=== PATIENT | female | born 1990 | race Two or more races ===

== ENCOUNTER 2024-12-04 18:16 | Emergency (ER) | payer MEDICAID, OTHER ==
[~2024-12-04] VITALS: Ht 167.6 cm; Wt 66.4 kg
--- NOTE | 2024-12-04 18:37 | ECG ---
[facility] Test Date: 2024-12-04 Test Time: 18:24:57 Pat Name: MULUGETA LEVY Department: ED Room: Gender: F Therapist'S Assistant: NELY : 1990 Requested By: JAQUELIN CONNOR Order Number: [id number] Reading MD: Robinson Vines Measurements Intervals [place] Rate: 79 P: 63 IN: 108 QRS: 86 QRSD: 120 T: 54 QT: 412 QTc: 473 Interpretive Statements Sinus rhythm Short IN interval IVCD, consider atypical RBBB Electronically Signed On 12-06-2024 17:08:52 PDT by Robinson Vines Please click the below link to view image of tracing.
--- NOTE | 2024-12-04 19:39 | ED.PDOC ---
MANAGER UNION HPI Comments 34 y.o female presents to the ED via EMS for a chief complaint of vaginal b leeding associated with abdominal pain that started 2 days ago. Patient reports being seen at [place] when symptoms presented, had an ultrasound done indicating possible miscarriage. Patient's last menstrual cycle was in August of 2024. Patient reports bleeding has worsened today and is now having constant sharp diffused abdominal pain. Patient has not seen an MANAGER UNION yet. 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 Chief Complaint: Vaginal Bleed Time Seen by MD: 19:00 Reviewed Notes: Nurses Notes, Medications, Allergies Allergies: Coded Allergies: NO KNOWN ALLERGIES (Unverified , 12/04/24) Information Source: Patient Mode of Arrival: EMS Timing: Days (2) Vaginal Discharge: None Vaginal Lesions: None Bleeding Quality: Dark Vaginal Mass: None Onset Of Mass/Bleeding: Spontaneous Sexual Activity: Last Consensual [place]: Unknown Control: None History of: Current Blood Type: Unknown Associated Signs and Symptoms: Vaginal Bleeding, Abdominal Pain Past Medical History PAST MEDICAL HISTORY: Denies Past Medical History (Other): SVT Surgical History: Denies all surgeries 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: 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 4 Para 3 AB 0 LMP August 2024 Family History Family History: Reviewed,noncontributory to illness Social History Smoker: Non-Smoker Alcohol: Denies ETOH Use Drugs: Denies Drug Use Lives In: Home Constitutional: denies: chills, diaphoresis, fatigue, fever, malaise, sweats, weakness, others Respiratory: denies: cough, hemoptysis, orthopnea, SOB at rest, shortness of breath, SOB with excertion, stridor, wheezing, others Cardiovascular: denies: chest pain, dizzy spells, diaphoresis, Dyspnea on exertion, edema, irregular heart beat, left arm pain, lightheadedness, palpitations, PND, syncope, others Gastrointestinal: reports: abdominal pain; denies: abdomen distended, blood streaked bowels, constipated, diarrhea, dysphagia, difficulty swallowing, hematemesis, melena, nausea, poor appetite, poor fluid intake, rectal bleeding, rectal pain, vomiting, others Genitourinary: reports: abnormal vagina bleeding, pain, ; denies: burning, dyspareunia, dysuria, flank pain, frequency, hematuria, incontinence, vagina discharge, urgency, others Neurological: denies: dizziness, fainting, headache, left sided numbness, left sided weakness, numbness, paresthesia, pre-existing deficit, right sided numbness, right sided weakness, seizure, speech problems, tingling, tremors, weakness, others Musculoskeletal: denies: back pain, gout, joint pain, joint swelling, muscle pain, muscle stiffness, neck pain, others Integumetry: denies: bruises, change in color, change in hair/nails, dryness, laceration, lesions, lumps, rash, wounds, others Allergic/Immunocompromised: denies: Difficulty Healing, Frequent Infections, Hives, Itching, others Hematologic/Lymphatic: denies: anemia, blood clots, easy bleeding, easy bruising, swollen glands, others Endocrine: denies: excessive hunger, excessive sweating, excessive thirst, excessive urination, flushing, intolerance to cold, intolerance to heat, unexplained weight gain, unexplained weight loss, others Psychiatric: denies: anxiety, bipolar disorder, depression, hopeless, panic disorder, schizophrenia, sleepless, suicidal, others All Other Systems: Reviewed and Negative Physical Exam General Appearance: Moderate Distress HEENT: Normal ENT Inspection, Pharynx Normal, TMs Normal Neck: Full Range of Motion, Non-Tender, Normal, Normal Inspection Respiratory: Chest Non-Tender, Lungs Clear, No Accessory Muscle Use, No Respiratory Distress, Normal Breath Sounds Cardiovascular: No Edema, No JVD, No Murmur, No Gallop, Normal Peripheral Pulses, Regular Rate/Rhythm Breast Exam: Deferred Gastrointestinal: Diffuse, Tenderness Genitalia: Deferred Pelvic: Deferred Rectal: Deferred Extremities: No calf tenderness, Normal capillary refill, Normal inspection, Normal range of motion, Non-tender, No pedal edema Musculoskeletal : Apperance: Normal Neurologic: Alert, oil burner repairer II-XII nml as Tested, No Motor Deficits, Normal Affect, Normal Mood, No Sensory Deficits Cerebellar Function: Normal Reflexes: Normal Skin: Dry, Normal Color, Warm Lymphatic: No Adenopathy Was a procedure done? Was a procedure done?: No Differential Diagnosis (TRASH COLLECTOR SUPERVISOR) Vaginal Bleeding: - Complete, - Incomplete, - Inevitable, - Missed, - Threatened, Blood Loss Anemia, Ectopic , Menstrual Bleeding X-Ray, Labs, Meds, VS Vital Signs Date Time Temp Pulse Resp B/P (MAP) Pulse Ox O2 Delivery O2 Flow Rate FiO2 12/04/24 18:33 98.8 82 18 124/81 (95) 99 98.8 12/04/24 18:24 79 Lab Test 12/04/24 20:51 12/04/24 19:53 Range/Units Urine Color Yellow Yellow Urine Clarity Turbid H Clear Urine pH 5.0 5.0-9.0 Urine Specific [place] 1.030 1.001-1.035 Urine Protein Trace H Negative Urine Ketones Negative Negative Urine Blood 3+ H Negative /uL Urine Nitrite Negative Negative Urine Bilirubin Negative Negative Urine Urobilinogen Normal Negative mg/dL Urine Leukocyte Esterase Negative Negative /uL Urine RBC 320 0 - 4 /hpf Urine Microscopic WBC 10 H 0-5 /HPF Urine Squamous Epithelial Cells Few <5 /hpf Urine Bacteria None seen None Seen /hpf Urine Hyaline Casts Few 0 - 2 /lpf Urine Mucus Few None Seen Urine Glucose Normal Normal mg/dL Urine Test Positive Negative Beta HCG, Quantitative 4657.9 H 1.5-4.2 mIU/mL X-Ray, Labs, Meds, VS Comment Imaging: X-rays and CT scans were reviewed and interpreted by this provider, imaging shows no fractures and no pathological disease. Pending radiology review. Ultrasound: Ultrasound shows no intrauterine pending radiology review Laboratory: Labs reviewed and interpreted by this provider. No significant abnormalities noted. Patient has prior medical visits reviewed. Med reconciliation performed Vital signs reviewed Time of 1ST Reevaluation: 19:39 Reevaluation 1ST: Unchanged Patient Education/Counseling: Diagnosis, Treatment, Prognosis, Need For Follow Up (Follow up with OBGYN next available appointment. Return to emergency department if symptoms worsen.) Family Education/Counseling: No Family Present Departure 1 Departure Time of Disposition: 22:26 Impression: Primary Impression: Miscarriage at 8 to 28 weeks gestation Disposition: HOME / SELF CARE / HOMELESS Condition: Fair Discharged With: Self Critical Care Note Critical Care Time?: No Stability Stability form required: No I personally scribed for TEFOILO GALLOWAY ([facility]) on 12/04/24 at 19:39. Electronically submitted by Char Tidwell ([facility]). TEOFILO GALLOWAY Dec 04, 2024 19:39
[2024-12-04 20:53] LABS: Urine Bacteria None Seen /hpf (None Seen)
[2024-12-04 21:04] LABS: Urine Blood 3+ /uL (Negative); Urine Clarity Turbid (Clear); Urine Color Yellow (Yellow); Urine Hyaline Cast FEW /lpf (0 - 2); Urine Mucus FEW (None Seen); Urine Protein, UAD TRACE (Negative); Urine Squamous Epithelial Cell FEW /hpf (<5); Urine Urobilinogen Normal (Negative); Urine WBC 10 /HPF (0-5)
--- NOTE | 2024-12-04 22:14 | DVH ---
OB ULTRASOUND: US OB ULTRASOUND COMP LESS 14WKS. TECHNIQUE: Multiple real-time grayscale sonographic images of the pelvis with duplex Doppler color f low, spectral and M-mode analysis. TRANSDUCERS: Transabdominal FINDINGS: The uterus measures 8.8 x 3.9 x 4.9 cm The cervix 18 mm Right ovary not visualized Left ovary measures 4.8 x 3.1 x 2.2 cm. Left ovarian volume is 17.56 cc. Left ovary shows normal Dop pler color flow. There is an anechoic mass in the left ovary measuring 2.8 x 1.5 x 1.5 cm. This is anechoic and most l ikely represents a follicle IMPRESSION: 1. Uterus measures 8.8 x 5 cm. 2. No IUP
[2024-12-04] MEDS: MORPHINE SULFATE 4 MG/ML SYR/VIAL IV ONE (22:45)
[2024-12-04] MEDS: ONDANSETRON HCL 4 MG/2 ML VIAL IV ONE (22:46)
[2024-12-04 23:13] VITALS: BP 118/74; PULSE 90; RESP 16; TEMP 98.1; O2SAT 97
== END 2024-12-04 23:16 | disposition home or self-care (01) ==
LOC: EDBD 18:16 → ER 18:22
DX: O20.0 Threatened abortion (principal); Z3A.00 Weeks of gestation of pregnancy not specified; Z79.899 Other long term (current) drug therapy
CPT/HCPCS: 36415; 76801; 81001; 81025; 82947; 84702; 93005; 96374; 96375; 99285; J2270; J2405